=== PATIENT | female | born 1990 | race African-American/Black ===

== ENCOUNTER 2018-05-20 20:12 | Outpatient (CLI) | payer OTHER ==
[~2018-05-20] VITALS: Ht 172.7 cm; Wt 84.4 kg
[2018-05-20] MEDS ORDERED: PNV11TAB PO (21:05)
[2018-05-20 21:08] VITALS: BP 131/64; PULSE 80; RESP 18; Ht 172.7 cm; Wt 84.4 kg
[2018-05-20] MEDS ORDERED: hydrOXYzine HCL 25 MG TAB PO ONE (21:30)
[2018-05-21] MEDS ORDERED: TERBUTALINE 1 MG/ML INJ SC ONE
--- NOTE | 2018-05-21 05:11 | PN ---
Triage Information Date/Time Reason for visit: Rash and weakness Weeks of Gestation 35 weeks /Para G1 Diabetes: none Hypertention: none Objective Vital Signs Date Temp Pulse Resp B/P (MAP) Pulse Ox O2 O2 Flow FiO2 Time Delivery Rate 05/20/18 98.0 80 18 131/64 Room Air 21:08 (86) Heart Rate: 130's Results/Medications Results 24 hrs Laboratory Tests Test 05/20/18 20:10 Urine Color YELLOW Urine Clarity CLEAR Urine pH 7.0 Urine Specific [place] 1.011 Urine Ketones TRACE A Urine Nitrite NEGATIVE Urine Bilirubin NEGATIVE Urine Urobilinogen NEGATIVE Urine Leukocyte Esterase NEGATIVE Urine Hemoglobin NEGATIVE Urine Glucose NEGATIVE Urine Total Protein NEGATIVE Urine Opiates Screen NEGATIVE Urine Barbiturates NEGATIVE Urine Amphetamines Screen NEGATIVE Urine Benzodiazepines Screen NEGATIVE Urine Cocaine Screen NEGATIVE Urine Cannabinoids NEGATIVE Imaging Results Presentation: Cephalic. Placenta: Anterior. No evidence of placental abruption. No evidence of placenta previa. breathing movement = 2/2 tone = 2/2 motion = 2/2 ROSITA = 2/2 ROSITA = 13.0 cm heart rate: 158 beats per minute IMPRESSION: Single intrauterine gestation. Biophysical profile 11/06 Disposition: Discharge Assessment/Plan 27 years old 1 with single intrauterine at 35 weeks with a FIORDALIZA of 06/24/2018 complaining of a rash and itchiness. She states rash and itching is all over her body, no rash or itching on palms and soles. She states good movement. She denies nausea, vomiting, shortness of breath, chest pain, headache, visual changes, vaginal bleeding or LOF. Her exam was unremarkable, no rash seen, however during exam was noted she has itching. - FHR: No sign of metabolic acidosis- Category I - Initially she has uterine contractions which are resolved with p.o. fluid and 1 dose of terbutaline - Hydroxyzine 25 mg p.o. given she felt much better and reports no further itching. Prescription for 10 mg hydroxyzine twice daily given. I strongly recommend the nurse through I voiding when she is taking hydroxyzine. - Symptoms and sign of labor, preeclampsia, kick count discussed with patient, she voiced understanding. All of her questions answered. - Patient was discharged home in stable condition with the appropriate discharge instructions provided. I would like patient to have close follow-up with her primary physician or outpatient clinic in 1-2 days or return to triage for worsening symptoms or any other urgent concerns. DIONNA GRAHAM May 21, 2018 05:11
== END 2018-05-21 02:50 | disposition home or self-care (01) ==
LOC: OBT 20:12 → L-D 20:14 → OBT 05-21 02:50
PROVIDERS: ATTEND Obstetrics & Gynecology
DX: O26.893 Other specified pregnancy related conditions, third trimester (principal); Z3A.35 35 weeks gestation of pregnancy; R21 Rash and other nonspecific skin eruption; R53.1 Weakness
CPT/HCPCS: 76818; 80307; 81003; Z7500; Z7610; G0463

== ENCOUNTER 2018-07-25 16:13 | Emergency (ER) | payer OTHER ==
[~2018-07-25] VITALS: Ht 167.6 cm; Wt 70.0 kg
[~2018-07-25 16:13] MED LIST: PNV11TAB PO
[2018-07-25] MEDS ORDERED: SOD CHLORIDE 0.9% 1,000 ML IV STA (16:25)
[2018-07-25 16:44] VITALS: Ht 167.6 cm; Wt 70.0 kg
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
[2018-07-25] MEDS ORDERED: CEPH500C PO (20:47)
[2018-07-25] MEDS ORDERED: OXCA300T41 PO (20:48)
[2018-07-25] MEDS ORDERED: MAGN400T28 PO (20:49)
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
[2018-07-25] MEDS ORDERED: OXCARBAZEPINE 300 MG TAB PO ONE (22:30)
[2018-07-25 23:11] VITALS: BP 114/74; PULSE 68; RESP 16
== END 2018-07-25 23:20 | disposition home or self-care (01) ==
LOC: E/R 16:13
DX: F23 Brief psychotic disorder (principal); R40.2142 Coma scale, eyes open, spontaneous, at arrival to emergency department; R40.2252 Coma scale, best verbal response, oriented, at arrival to emergency department; R40.2362 Coma scale, best motor response, obeys commands, at arrival to emergency department
CPT/HCPCS: 80053; 80307; 85025; 85610; 85730; J7030; Z7502; Z7610

== ENCOUNTER 2018-09-19 07:31 | Emergency (ER) | payer OTHER ==
[~2018-09-19] VITALS: Ht 172.7 cm; Wt 75.4 kg
[~2018-09-19 07:31] MED LIST changes: +CEPH500C PO; +MAGN400T28 PO; +OXCA300T41 PO
[2018-09-19 07:33] VITALS: Ht 172.7 cm; Wt 75.4 kg
--- NOTE | 2018-09-19 08:11 | ERD ---
ER Documentation Chief Complaint Chief Complaint PELVIC PAIN W/ DYSURIA X1 WEEK HPI 28-year-old female presents complaint of pelvic pain and dysuria for the past week. In addition states she is been having some abnormal discharge. States she has been having unprotected intercourse as well. To note she just gave vaginally 3 months ago without complications. States she has had UTIs in the past. Denies any nausea, vomiting, diarrhea, fevers, hematuria, anorexia, flank pain, back pain. History of seizure disorder. ROS All systems reviewed and are negative except as per history of present illness. Medications Home Meds Active Scripts Doxycycline Hyclate* (Doxycycline Hyclate*) 100 Mg Tablet.dr, 100 MG PO BID for PID for 14 Days, TAB Prov:NADIR CRANDALL 09/19/18 Reported Medications Magnesium Oxide* (Magnesium Oxide*) 400 Mg Tablet, 400 MG PO BID, TAB 07/25/18 Oxcarbazepine* (Oxcarbazepine*) 300 Mg Tablet, 300 MG PO BID, TAB 07/25/18 Cephalexin* (Cephalexin*) 500 Mg Capsule, 500 MG PO Q6, #28 CAP FOR 10 DAYS, START DATE 07/22/18 07/25/18 [id number] ( ) 1 Each Tablet, 1 TAB PO DAILY, TAB 05/20/18 Allergies Allergies: Coded Allergies: acetaminophen (Verified Allergy, Mild, Hives, 07/25/18) PMhx/Soc History of Surgery: No Anesthesia Reaction: No Hx Neurological Disorder: No Hx Respiratory Disorders: No Hx Cardiac Disorders: No Hx Psychiatric Problems: No Hx Miscellaneous Medical Probl: Yes (UTI) Hx Alcohol Use: No Hx Substance Use: Yes (marijuana) Hx Tobacco Use: Yes Smoking Status: Never smoker FmHx Family History: No diabetes, No coronary disease, No other Physical Exam Vitals Vital Signs Date Temp Pulse Resp B/P (MAP) Pulse Ox O2 O2 Flow FiO2 Time Delivery Rate 09/19/18 98.4 60 18 106/54 99 Room Air 13:45 (71) 09/19/18 98.4 71 16 113/56 99 07:33 (75) Physical Exam Const: No acute distress Head: Atraumatic Eyes: Normal Conjunctiva ENT: Normal External Ears, Nose and Mouth. Neck: Full range of motion. No meningismus. Resp: Clear to auscultation bilaterally Cardio: Regular rate and rhythm, no murmurs Abd: Soft, non tender, non distended. Normal bowel sounds Skin: No petechiae or rashes Back: No midline or flank tenderness Ext: No cyanosis, or edema Neur: Awake and alert Psych: Normal Mood and Affect Pelvic Exam: Recruitment Consultant present Abdomen: Negative McBurney's tenderness palpation the left lower quadrant. External Genitalia: Normal Skin Speculum: Normal vaginal mucosa, thin white discharge noted. Bimanual: No adnexal masses or tenderness, positive cervical motion tenderness. Result Diagram: 09/19/1890409/19/18904 Results 24 hrs Laboratory Tests Test 09/19/18 08:14 09/19/18 09:05 Urine Color YELLOW Urine Clarity SLIGHTLY CLOUDY Urine pH 5.0 Urine Specific [place] 1.026 Urine Ketones NEGATIVE mg/dL Urine Nitrite NEGATIVE mg/dL Urine Bilirubin NEGATIVE mg/dL Urine Urobilinogen NEGATIVE mg/dL Urine Leukocyte Esterase TRACE [place]/ul Urine Microscopic RBC 0 /HPF Urine Microscopic WBC 4 /HPF Urine Squamous Epithelial Cells MODERATE /HPF Urine Mucus MODERATE /HPF Urine Hemoglobin NEGATIVE mg/dL Urine Glucose NEGATIVE mg/dL Urine Total Protein NEGATIVE mg/dl Urine Test NEGATIVE White Blood Count 8.3 10^3/ul Red Blood Count 4.32 10^6/ul Hemoglobin 13.4 g/dl Hematocrit 39.6 % Mean Corpuscular Volume 91.7 fl Mean Corpuscular Hemoglobin 31.0 pg Mean Corpuscular Hemoglobin Concent 33.8 g/dl Red Cell Distribution Width 12.8 % Platelet Count 286 10^3/UL Mean Platelet Volume 10.6 fl Immature Granulocytes % 0.200 % Neutrophils % 58.6 % Lymphocytes % 31.4 % Monocytes % 8.1 % Eosinophils % 1.2 % Basophils % 0.5 % Nucleated Red Blood Cells % 0.0 /100WBC Immature Granulocytes # 0.020 10^3/ul Neutrophils # 4.8 10^3/ul Lymphocytes # 2.6 10^3/ul Monocytes # 0.7 10^3/ul Eosinophils # 0.1 10^3/ul Basophils # 0.0 10^3/ul Nucleated Red Blood Cells # 0.0 10^3/ul Sodium Level 145 mmol/L Potassium Level 4.5 mmol/L Chloride Level 106 mmol/L Carbon Dioxide Level 27 mmol/L Anion Gap 12 Blood Urea Nitrogen 10 mg/dl Creatinine 0.68 mg/dl Est Glomerular Filtrat Rate mL/min > 60 mL/min Glucose Level 77 mg/dl Calcium Level 10.1 mg/dl Total Bilirubin 0.3 mg/dl Direct Bilirubin 0.00 mg/dl Indirect Bilirubin 0.3 mg/dl Aspartate Amino Transf (AST/SGOT) 17 IU/L Alanine Aminotransferase (ALT/SGPT) 16 IU/L Alkaline Phosphatase 69 IU/L Total Protein 7.9 g/dl Albumin 4.7 g/dl Globulin 3.20 g/dl Albumin/Globulin Ratio 1.46 Current Medications Medications Dose Sig/Shanda Start Time Status Last (Trade) Ordered Route PRN Stop Time Admin Dose Reason Admin Ceftriaxone 250 mg ONCE ONCE 09/19/18 DC 09/19/18 Sodium IM 10:00 09:54 (Rocephin) 09/19/18 10:01 Lidocaine 5 ml ONCE ONCE 09/19/18 DC 09/19/18 (Xylocaine INJ 10:00 09:53 1% (Mpf)) 09/19/18 10:01 Procedures/MDM MDM: Given patient's complaint of vaginal discharge, pelvic pain, as well as positive with positive cervical motion test, patient will be treated for PID. Patient given ceftriaxone IM in the ER and 14-day course of doxy. I have low suspicion for ectopic , ovarian torsion, tubo-ovarian abscess, uterine prolapse, ovarian cancer, uterine cancer, nephrolithiasis, pyelonephritis, appendicitis, diverticulitis, bowel obstruction, perirectal abscess. At this time, patient is stable for discharge and outpatient management. I have instructed the patient to follow-up with his/her primary care physician in 1-2 days. I have discussed with the patient the possibility of needing to see a specialist for further workup and imaging studies if symptoms persist. I have instructed the patient to promptly return to the ER for any new or worsening symptoms including but not limited to increased pain, fever, nausea, vomiting, weakness or LOC. The patient and/or family expressed understanding of and agreement with this plan. All questions were answered. Home care instructions were provided. DISCLAIMER: Inadvertent spelling and grammatical errors are likely due to EHR/dictation software use and do not reflect on the overall quality of patient care. Also, please note that the electronic time recorded on this note does not necessarily reflect the actual time of the patient encounter. Departure Diagnosis: Primary Impression: PID (acute pelvic inflammatory disease) Condition: NADIR Aguilar Sep 19, 2018 08:11
[2018-09-19] MEDS ORDERED: CEFTRIAXONE 250 MG INJ IM ONE (10:00)
[2018-09-19] MEDS ORDERED: LIDOCAINE 1% (MPF) 5 ML VIAL INJ ONE (10:00)
[2018-09-19] MEDS ORDERED: DOXY100T20 PO (12:36)
[2018-09-19 13:45] VITALS: BP 106/54; PULSE 60; RESP 18
== END 2018-09-19 13:46 | disposition home or self-care (01) ==
LOC: FTE 07:31
DX: N73.9 Female pelvic inflammatory disease, unspecified (principal); Z87.891 Personal history of nicotine dependence
CPT/HCPCS: 76856; 80053; 81001; 84703; 85025; 87210; 87591; 96372; J0696; Z7502; Z7610

== ENCOUNTER 2018-10-31 19:40 | Emergency (ER) | payer OTHER ==
[~2018-10-31] VITALS: Ht 180.3 cm; Wt 76.3 kg
[~2018-10-31 19:40] MED LIST changes: +BEN25 PO; +DOXY100T20 PO; +HC30CR25 TOP; +MAG-19 PO; +ONDA4TAB14 PO
[2018-10-31 19:43] VITALS: BP 131/58; PULSE 68; RESP 18; Ht 180.3 cm; Wt 76.3 kg
--- NOTE | 2018-10-31 20:10 | ERD ---
ER Documentation Chief Complaint Chief Complaint C/O PELVIC PAIN AND RASH ON LOWER LEGS HPI 28-year-old female presented to ED for mid epigastric abdominal pain x1 day. Patient states the pain is dull and comes and goes. The patient denies vomiting diarrhea or vaginal discharge. Patient states she is currently on her menstrual cycle and feels a little bit like menstrual cramps. Patient was recently treated in late August for PID. The patient states that she finished her course of medication. The patient states she is no longer having vaginal discharge or pelvic pain at this time. Patient states she has a history of seizures which is under control with medications. Patient states her only allergies to Tylenol which she gets hives after she takes. The patient is also has concerns about a rash on her right ankle. ROS All systems reviewed and are negative except as per history of present illness. Medications Home Meds Active Scripts Hydrocortisone* Topical (Hydrocortisone* Topical) 2.5%-28.3 Gm Cream..g., 1 APPL IC TOP BID, #1 TUB Prov:LUCAS SANTO PA-C 10/31/18 Diphenhydramine Hcl* (Benadryl*) 25 Mg Cap, 25 MG PO Q6, #30 CAP Prov:LUCAS SANTO PA-C 10/31/18 Ondansetron (Ondansetron Odt) 4 Mg Tab.rapdis, 4 MG PO Q6H PRN for NAUSEA AND/OR VOMITING, #10 TAB Prov:LUCAS SANTO PA-C 10/31/18 Magaldrate/Simethicone* (Mylanta*) 355 Ml Susp, 30 ML PO QID PRN for GASTROINTESTINAL UPSET, #1 BOTTLE Prov:LUCAS SANTO PA-C 10/31/18 Doxycycline Hyclate* (Doxycycline Hyclate*) 100 Mg Tablet., 100 MG PO BID for PID for 14 Days, TAB Prov:NADIR CRANDALL 09/19/18 Reported Medications Magnesium Oxide* (Magnesium Oxide*) 400 Mg Tablet, 400 MG PO BID, TAB 07/25/18 Oxcarbazepine* (Oxcarbazepine*) 300 Mg Tablet, 300 MG PO BID, TAB 07/25/18 Cephalexin* (Cephalexin*) 500 Mg Capsule, 500 MG PO Q6, #28 CAP FOR 10 DAYS, START DATE 07/22/18 07/25/18 [id number] ( 19) 1 Each Tablet, 1 TAB PO DAILY, TAB 05/20/18 Allergies Allergies: Coded Allergies: acetaminophen (Verified Allergy, Mild, Hives, 07/25/18) PMhx/Soc Medical and Surgical Hx: pt denies Surgical Hx History of Surgery: No Anesthesia Reaction: No Hx Neurological Disorder: No Hx Respiratory Disorders: No Hx Cardiac Disorders: No Hx Psychiatric Problems: No Hx Miscellaneous Medical Probl: Yes (UTI) Hx Alcohol Use: No Hx Substance Use: Yes (marijuana) Hx Tobacco Use: Yes Smoking Status: Former smoker FmHx Family History: No diabetes, No coronary disease, No other Physical Exam Vitals Vital Signs Date Temp Pulse Resp B/P (MAP) Pulse Ox O2 O2 Flow FiO2 Time Delivery Rate 10/31/18 98.0 68 18 131/58 99 19:43 (82) Physical Exam GENERAL: The patient is well-appearing, well-nourished, in no acute distress HEENT: Atraumatic. Conjunctivae are pink. Pupils equal, round, and reactive to light. There is no scleral icterus. Tympanic membranes clear bilaterally. Oropharynx clear. No nystagmus or photophobia. NECK: C-spine is soft and supple. There is no meningismus. There is no cervical lymphadenopathy. CHEST: Clear to auscultation bilaterally. There are no rales, wheezes or rhonchi. HEART: Regular rate and rhythm. No murmurs, clicks, rubs or gallops. ABDOMEN:Soft, nontender and nondistended. Good bowel sounds. No rebound or guarding. No gross peritonitis. No gross organomegaly or masses. No Law sign or McBurney point tenderness. BACK: No midline or flank tenderness. SKIN: 2 erythematous lesions less than 1 cm on right ankle that are consistent with bug bites. Negative [place] Results 24 hrs Laboratory Tests Test 10/31/18 20:17 10/31/18 20:19 Urine Color YELLOW Urine Clarity CLEAR Urine pH 7.0 Urine Specific [place] 1.012 Urine Ketones NEGATIVE mg/dL Urine Nitrite NEGATIVE mg/dL Urine Bilirubin NEGATIVE mg/dL Urine Urobilinogen NEGATIVE mg/dL Urine Leukocyte Esterase TRACE Cecil/ul Urine Microscopic RBC 0 /HPF Urine Microscopic WBC 3 /HPF Urine Squamous Epithelial Cells FEW /HPF Urine Mucus FEW /HPF Urine Hemoglobin 3+ mg/dL Urine Glucose NEGATIVE mg/dL Urine Total Protein NEGATIVE mg/dl POC Beta HCG, Qualitative NEGATIVE Current Medications Medications Dose Sig/Shanda Start Time Status Last (Trade) Ordered Route PRN Stop Time Admin Dose Reason Admin 40 ml ONCE ONCE 10/31/18 DC 10/31/18 Miscellaneous PO 20:30 10/31/18 20:23 Medication 20:31 (Gi Cocktail (2)) Procedures/MDM ED course: UA, urine The patient was stable throughout the ED course. The patient and/or family informed of laboratory and diagnostic imaging results throughout the ED course. Medications given in ER: GI cocktail Patient tolerated medication well with no adverse reactions. Patient reported i mprovement in pain. Medical decision makin-year-old female presented to ED for abdominal pain x1 day. Patient points to her mid epigastric pain and states it is a dull crampy pain that comes and goes. The patient cannot pinpoint any aggravating triggers. The patient was recently treated for PID the end of August. The patient states she finished her antibiotics and is no longer having pain vaginal discharge or discomfort during sexual intercourse. Patient's physical exam revealed a soft nontender abdomen with no right lower quadrant tenderness, no right upper quadrant tenderness, no left lower quadrant tenderness, no left upper quadrant tenderness. Patient denies vomiting diarrhea and states her last bowel movement was yesterday night and it was normal. The patient had no CVA tenderness. Patient's UA came back unremarkable and the patient has no vaginal discharge or dysuria. Patient's urine was negative. At this time I have low suspicion for DKA, bowel perforation, cholecystitis, choledocholithiasis, ascending cholangitis, hepatic abscess, pancreatitis, PUD, gastritis, GERD, splenic rupture, diverticulitis,, pyelonephritis, nephrolithiasis, appendicitis, constipation, , ectopic , PID, ovarian torsion or tubo-ovarian abscess. Upon reevaluation the patient after she received a GI cocktail she appears to be doing much better. She states the symptoms have resided. Advised the patient she needs follow-up with her primary care provider in 1 to 2 days regarding this visit. Advised the patient if symptoms worsen she should return to ER immediately. Prescription for home: Benadryl Hydrocortisone topical Mylanta Zofran I have discussed with the patient proper use and common side effects to expert with the medication . I advised the patient/family to speak with the pharmacist dispensing the medication to be advised of any potential drug interactions with other medication or supplements they may be taking. Discharge: At this time, patient is stable for discharge and outpatient management. I have instructed the patient to follow-up with his\her primary care physician in 1 to 2 days. I have discussed with the patient the possibility of needing to see a specialist for further work-up and imaging studies if symptoms persist. I have instructed the patient to promptly return to the ER for any new or worsening symptoms including increased pain, fever, nausea, vomiting, weakness or LOC. The patient and\or family expressed understanding of and agreement with this plan. All questions were answered. Home care instructions were provided. Disclaimer: Inadvertent spelling and grammatical errors are likely due to EHR\dictation software use and do not reflect on the overall quality of patient care. Also, please note that the electronic time recorded on the note does not necessarily reflect the actual time of the patient encounter. Departure Diagnosis: Primary Impression: Abdominal pain Abdominal location: epigastric Qualified Codes: R10.13 - Epigastric pain Additional Impression: Bug bite Encounter type: initial encounter Qualified Codes: W57.XXXA - Bitten or stung by nonvenomous insect and other nonvenomous arthropods, initial encounter Condition: LUCAS Isidro PA-C Oct 31, 2018 20:10
[2018-10-31] MEDS ORDERED: LIDOCAINE/MYLANTA 40 ML BTL PO ONE (20:30)
== END 2018-10-31 20:58 | disposition home or self-care (01) ==
LOC: FTE 19:40
DX: S90.561A Insect bite (nonvenomous), right ankle, initial encounter (principal); R10.13 Epigastric pain; R10.2 Pelvic and perineal pain; W57.XXXA Bitten or stung by nonvenomous insect and other nonvenomous arthropods, initial encounter; Y92.9 Unspecified place or not applicable; Z87.891 Personal history of nicotine dependence
CPT/HCPCS: 81001; 81025; Z7502; Z7610; 99283

== ENCOUNTER 2018-11-28 12:23 | Emergency (ER) | payer OTHER ==
[~2018-11-28] VITALS: Ht 172.7 cm; Wt 70.3 kg
[2018-11-28 12:33] VITALS: BP 128/60; PULSE 67; RESP 20; Ht 172.7 cm; Wt 70.3 kg
== END 2018-11-28 13:47 | disposition home or self-care (01) ==
LOC: FTE 12:23
DX: R10.9 Unspecified abdominal pain (principal); T50.905A Adverse effect of unspecified drugs, medicaments and biological substances, initial encounter; Z87.891 Personal history of nicotine dependence
CPT/HCPCS: 99283